=== PATIENT | female | born 1950 | race Caucasian/White ===

== ENCOUNTER 2019-11-09 13:04 | Emergency (ER) | payer MEDICARE, BC ==
[2019-11-09] MEDS ORDERED: Metoclopramide 10 MG/2 ML SDV IVPUSH ONE (13:45)
[2019-11-09] MEDS ORDERED: LORazepam 2 MG/ML SDV IV ONE (13:45)
[2019-11-09] MEDS ORDERED: Sodium Chloride 0.9% 1,000 ML IV SCH (13:45)
--- NOTE | 2019-11-09 13:51 | EDM.PDOC ---
ED HPI GENERAL MEDICAL PROBLEM - General Chief Complaint: Neurological Problem Stated Complaint: OFF BALANCE Time Seen by Provider: 11/09/19 13:32 Source of Information: Reports: Patient History Limitations: Reports: No Limitations - History of Present Illness INITIAL COMMENTS - FREE TEXT/NARRATIVE: 69-year-old female presents to the ED feeling off balance when she tries to walk since about 1:00 this morning. Associated intermittent nausea without any vomiting. Of note symptoms go away when she stops moving or rest. By history she has chronic tinnitus in both ears and its louder some days than others. Associated mild hearing loss. She has had consultation with audiology in the past. Denies any recent falls or injuries to her head. Denies feeling like her heart is skipping or racing. Only change in medication is been an increased dose of Cymbalta about a month ago for chronic pain syndrome. Patient has not had vertigo symptoms in the past. No recent change in eyeglasses. Of note she has no symptoms if she is perfectly still. Patient states that she is walking in her hallway at home this morning and bouncing off both gomez. Onset: Today, Sudden Onset Date: 11/09/19 Onset Time: 01:00 Duration: Hour(s):, Getting Worse, Waxing/Waning (Occurs only with movement of her head and neck.) Location: Reports: Other (Off balance off kilter feeling i.e. vertigo with walking.) Quality: Reports: Other (Offkilter/off-balance feeling) Severity: Moderate Improves with: Reports: Rest Worsens with: Reports: Movement Context: Denies: Activity (Any movement of the head and neck precipitates vertigo symptoms), Exercise, Lifting, Sick Contact, Trauma, Other Associated Symptoms: Reports: No Other Symptoms, Malaise (Chronic), Nausea/Vomiting (Nausea with off-balance sensation. No vomiting.), Rash, Weakness (General sense of weakness). Denies: Confusion, Chest Pain, Cough, cough w sputum, Diaphoresis, Fever/Chills, Headaches, Loss of Appetite, Seizure, Shortness of Breath, Syncope Treatments CHIEF OF VITAL STATISTICS: Reports: Other (see below) (No new medications.) - Related Data Allergies Allergy/AdvReac Type Severity Reaction Status Date / Time sweet potato Allergy Severe Vomiting Verified 11/09/19 13:28 Home Meds: Home Meds Benazepril [Lotensin] 1 tab PF DAILY 11/09/19 [History] Cyanocobalamin/Folic AC/Vit B6 [Folbee] 1 tab PO DAILY 11/09/19 [History] DULoxetine [Cymbalta] 60 mg PO DAILY 11/09/19 [History] Famotidine 20 mg PO BID 11/09/19 [History] Furosemide [Lasix] 40 mg PO DAILY 11/09/19 [History] Gabapentin [Neurontin] 300 mg PO DAILY 11/09/19 [History] Gabapentin [Neurontin] 600 mg PO BID 11/09/19 [History] Loratadine/Pseudoephedrine [Claritin-D 12 Hour] 11/09/19 [History] atenoloL [Tenormin] 50 mg PO DAILY 11/09/19 [History] rOPINIRole [Requip] 0.5 mg PO 11/09/19 [History] rOPINIRole [Requip] 1 mg PO BEDTIME 11/09/19 [History] Past Medical History Cardiovascular History: Reports: Hypertension Respiratory History: Reports: Sleep Apnea 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 Social & Family History - Living Situation & Occupation Living situation: Reports: , with Family ED ROS GENERAL - Review of Systems Review Of Systems: See Below Constitutional: Reports: Malaise, Weakness, Fatigue, Decreased Appetite. [place] es: Fever, Chills, Weight Loss HEENT: Reports: Glasses, Hearing Loss (She has chronic tinnitus in both ears for many years. Slowly losing her hearing. Not using hearing aids at present.), Vertigo (Vertigo symptoms today as presenting complaint. No past history of vertigo) Respiratory: Reports: Shortness of Breath. Denies: Wheezing, Pleuritic Chest Pain (Exertion at times), Cough, Sputum Cardiovascular: Reports: Blood Pressure Problem, Lightheadedness. Denies: Chest Pain, Claudication, Dyspnea on Exertion, Edema, Orthopnea, Palpitations Endocrine: Reports: Fatigue GI/Abdominal: Reports: Nausea (Nausea associated with the). Denies: Vomiting ( feeling of off balance today with no vomiting) : Reports: Frequency, Incontinence (Both both urge and stress components.) Musculoskeletal: Reports: Joint Pain (Arthritis changes knees hips lower back neck and shoulders.) Skin: Reports: No Symptoms Neurological: Reports: Difficulty Walking (Due to pain in lower extremities) Psychiatric: Reports: Depression, Other Hematologic/Lymphatic: Reports: No Symptoms (Chronic pain syndrome) Immunologic: Reports: No Symptoms ED EXAM, DIZZINESS - Physical Exam Exam: See Below Exam Limited By: No Limitations General Appearance: Alert, WD/WN, No Apparent Distress, Other (Patient is mildly anxious. Temperature is likely not correct at 35.8. Heart rate is 57 and sinus respiratory is 18 BP 152/91 sats are 97% on room air.) Eye Exam: Right Eye: Nystagmus (Gained nystagmus on right lateral gaze. No rotational component), Bilateral Eye: Normal Inspection, PERRL Nystagmus: worsens with head to R, reproducible, short duration Ears: TM Obscured by Cerumen (Left side is totally obscured by cerumen impaction against the eardrum.) Throat/Mouth: Normal Inspection, Normal Lips, Normal Oropharynx, Other (Oropharynx is slightly erythematous. Patient mentions that she is or does use a CPAP machine at bedtime due to sleep apnea which is likely the cause.) Head Exam: Atraumatic, Normocephalic Vertigo: worsens with head to R, reproducible Neck: Normal Inspection, Supple, Full Range of Motion, Tender Lateral. No: Carotid Bruit, Lymphadenopathy (L), Lymphadenopathy (R), Thyromegaly Respiratory/Chest: No Respiratory Distress, Lungs Clear, Normal Breath Sounds, No Accessory Muscle Use, Chest Non-Tender Cardiovascular: Normal Peripheral Pulses, Regular Rate, Rhythm, No Edema, No Gallop, No Murmur, No Rub GI/Abdominal: Normal Bowel Sounds, Soft, Non-Tender, No Organomegaly, No Mass, Pelvis Stable, Other (Moderately obese. This makes palpation of solid organs more difficult.) Neurological: Alert, Normal Mood/Affect, CN II-XII Intact, Normal Plantar Flexion, No Motor/Sensory Deficits, Oriented x 3, Other (No pronator drift. Normal rapid alternating movements.). No: Abnormal Finger to Nose Extremities: Normal Inspection, Normal Range of Motion, No Pedal Edema, Other (Treated changes both knees with very limited range of motion both hips suggesting arthritis.) Psychiatric: Normal Affect, Normal Mood, Anxious Skin Exam: Warm, Dry (Very mildly anxious.), Intact, Normal Color, No Rash Course - Vital Signs Last Recorded V/S: Last Vital Signs Temp 35.8 C L 11/09/19 13:21 Pulse 79 11/09/19 16:00 Resp 16 11/09/19 16:00 BP 159/77 H 11/09/19 16:00 Pulse Ox 97 11/09/19 16:00 - Orders/Labs/Meds Labs: Laboratory Tests 11/09/19 11/09/19 11/09/19 Range/Units 13:52 14:40 14:40 WBC 5.17 (3.98-10.04) K/mm3 RBC 4.48 (3.98-5.22) M/mm3 Hgb 13.8 (11.2-15.7) gm/dl Hct 43.9 (34.1-44.9) % MCV 98.0 H D (79.4-94.8) fl MCH 30.8 (25.6-32.2) pg MCHC 31.4 L (32.2-35.5) g/dl RDW Std Deviation 50.0 H (36.4-46.3) fL Plt Count 214 (182-369) K/mm3 MPV 10.8 (9.4-12.3) fl Neut % (Auto) 57.7 (34.0-71.1) % Lymph % (Auto) 27.7 (19.3-51.7) % [place] % (Auto) 10.1 (4.7-12.5) % Eos % (Auto) 3.1 (0.7-5.8) Baso % (Auto) 1.2 (0.1-1.2) % Neut # (Auto) 2.99 (1.56-6.13) K/mm3 Lymph # (Auto) 1.43 (1.18-3.74) K/mm3 [place] # (Auto) 0.52 H (0.24-0.36) K/mm3 Eos # (Auto) 0.16 (0.04-0.36) K/mm3 Baso # (Auto) 0.06 (0.01-0.08) K/mm3 Sodium 141 (136-145) mEq/L Potassium 3.9 (3.5-5.1) mEq/L Chloride 105 (98-107) mEq/L Carbon Dioxide 29 (21-32) mEq/L Anion Gap 10.9 (5-15) BUN 24 H (7-18) mg/dL Creatinine 1.1 H (0.55-1.02) mg/dL Est Cr Clr Drug Dosing 45.62 mL/min Estimated GFR (MDRD) 49 (>60) mL/min BUN/Creatinine Ratio 21.8 H (14-18) Glucose 106 (83-115) mg/dL Calcium 8.9 (8.5-10.1) mg/dL Magnesium 2.0 (1.8-2.4) mg/dl Total Bilirubin 0.4 (0.2-1.0) mg/dL AST 20 (15-37) U/L ALT 21 (14-59) U/L Alkaline Phosphatase 102 (46-116) U/L Troponin I < 0.017 (0.00-0.056) ng/mL Total Protein 7.9 (6.4-8.2) g/dl Albumin 3.1 L (3.4-5.0) g/dl Globulin 4.8 gm/dL Albumin/Globulin Ratio 0.7 L (1-2) TSH 3rd Generation 2.629 (0.358-3.74) uIU/mL Meds: Medications Discontinued Medications Generic Name Dose Route Start Last Admin Trade Name Freq PRN Reason Stop Dose Admin Sodium Chloride 1,000 mls @ 150 mls/hr 11/09/19 13:45 11/09/19 14:23 Normal Saline IV 150 mls/hr ASDIRECTED MELISSA Administration Lorazepam 0.5 mg 11/09/19 13:45 11/09/19 14:22 Ativan IV 11/09/19 13:46 0.5 mg ONETIME ONE Administration Meclizine HCl 25 mg 11/09/19 15:35 11/09/19 15:46 Antivert PO 11/09/19 15:36 25 mg ONETIME ONE Administration Metoclopramide HCl 7.5 mg 11/09/19 13:45 11/09/19 14:23 Reglan IVPUSH 11/09/19 13:46 7.5 mg ONETIME ONE Administration - Radiology Interpretation Free Text/Narrative:: 69-year-old female presents to the ED with acute onset of vertigo symptoms that started about 1:00 this morning when she got up. Subsequently she has been walking down hallways and bouncing off both gomez. She is vertiginous with movement and it goes away if she holds still and rest. Associated nausea development with movement disorder but has not vomited. Examination reveals sustained nystagmus on right lateral gaze. Interestingly she has a significant cerumen impaction in her left ear which may be the cause of her current vertigo symptoms. However history suggest chronic tinnitus in both ears with hearing loss gradually over several years. Plan IV normal saline at 125 mils per hour. Given Reglan 7.5 mg IV and Ativan 0.5 mg IV to stabilize her balance mechanism. She will have irrigation of the cerumen from her left ear. Routine labs to be collected to rule out a metabolic abnormality such as hypokalemia hypercalcemia or hypothyroidism. Of note she is bradycardic on examination at 54--55/min. - Re-Assessments/Exams Free Text/Narrative Re-Assessment/Exam: 11/09/19 14:53 White blood cell count is 5.17. The auto differential shows 58% neutrophils. Hemoglobin is 13.8 with hematocrit of 43.9. MCV is slightly elevated at 98.0. Platelet count 214,000. 11/09/19 15:27 Chemistry shows a sodium of 141 potassium of 3.9. Chloride 105 bicarb is 29. Anion gap is 10.9 BUN is 24 with a creatinine of 1.1. GFR is 49. BUN/creatinine ratio slightly elevated at 21.8. Glucose 106 with a calcium of 8.9. Magnesium is normal at 2.0 liver function normal. Troponin I is less than 0.017 total protein is 7.9 with an albumin fraction slightly low at 3.1. Globulin is 4.8. TSH is normal at 2.62 11/09/19 15:27 Nurse reports that her Lt ear has been irrigated and when she sat up patient still felt very vertiginous. We will therefore give further medication. Meclizine 25 mg p.o. I`m going to have the nurses have her get up and walk and see how she feels in a few minutes. 11/09/19 15:55 states she feels much better after she got up and moved around this time. Very mild vertigo symptoms but much improved. She will therefore be discharged to home. I will write her prescription for meclizine 25 mg tablet to be taken every 8 hours for 5 days if she has continued symptoms. Since removal of the cerumen impaction in her left ear may have been the culprit I am going to ask her to adopt a [id number] approach. She did receive the first dose of meclizine in the ED but will not take another tablet unless she has continued vertigo symptoms. Of note there was no sustained nystagmus to the right on review. Departure - Departure Time of Disposition: 15:56 Disposition: Home, Self-Care 01 Condition: Fair Clinical Impression: Impacted cerumen of left ear Benign paroxysmal positional vertigo Qualifiers: Laterality: left Qualified Code(s): H81.12 - Benign paroxysmal vertigo, left ear - Discharge Information *PRESCRIPTION DRUG MONITORING PROGRAM REVIEWED*: Not Applicable *COPY OF PRESCRIPTION DRUG MONITORING REPORT IN PATIENT GEOVANNY: Not Applicable Instructions: Vertigo, [id number] Referrals: Navya Rivera PUBLIC ADMINISTRATION PROFESSOR [Primary Care Provider] - Forms: ED Department Discharge Additional Instructions: Evaluation in the emergency room today in regards to development of balance issues since 1:00 this morning. This made you walk into the gomez and have a very unsteady gait like you have been drinking too much alcohol. Examination revealed that you do have cerumen impaction or earwax pushing up on the left eardrum which sometimes can cause vertigo symptoms. Lab test done in the ED today revealed no abnormalities. You felt better after the wax was removed from the left ear suggesting it may have been the culprit. You did also receive medication intravenously while in the ED for vertigo symptoms. You were given a tablet of meclizine 25 mg prior to discharge. Medication is taken 1 tablet every 8 hours for 5 consecutive days if vertigo symptoms persist. Which you can buy the same medication called Antivert 12.5 mg tablets [id number] in any drugstore and take 2 tablets every 8 hours. I would suggest doing this if your vertigo symptoms persist over the next 8 to 12 hours. However if it was the ear wax plug causing the symptoms vertigo symptoms may be gone and no further medication is indicated. Follow-up is required if you have persistent off balance or off kilter feeling last longer than 7 days. 5% of patients are better within 5 days of development of vertigo. However this does make you more prone to this reoccurring. Sepsis Event Note (ED) - Evaluation Sepsis Screening Result: No Definite Risk - Focused Exam Vital Signs: Vital Signs Temp Pulse Resp BP Pulse Ox 11/09/19 16:00 79 16 159/77 H 97 11/09/19 13:21 35.8 C L 57 L 18 152/91 H 97
[2019-11-09] MEDS ORDERED: Meclizine 12.5 MG Tab PO ONE (15:35)
[2019-11-09 16:28] VITALS: BP 159/77; PULSE 79
== END 2019-11-09 16:10 | disposition home or self-care (01) ==
LOC: JD.ED 13:04
DX: H61.22 Impacted cerumen, left ear (principal); H81.12 Benign paroxysmal vertigo, left ear; I10 Essential (primary) hypertension; G62.9 Polyneuropathy, unspecified; Z91.018 Allergy to other foods; Z79.899 Other long term (current) drug therapy
CPT/HCPCS: 36415; 69209; 80053; 83735; 84443; 84484; 85025; 96361; 96374; 96375; 99284; A9270; J2060; J2765; J7030; 99283

== ENCOUNTER 2023-07-08 18:55 | Observation (INO) | payer MEDICARE, BC ==
[2023-07-08 20:36] LABS: BASOPHILS PERCENT AUTO 0.5 % (0.0-1.0); EOSINOPHILS PERCENT AUTO 0.1 % (0.0-6.0); HEMATOCRIT 40.3 % (37.0-47.0); HEMOGLOBIN 13.7 gm/dl (12.0-16.0); IMMATURE GRAN ABSOLUTE AUTO 0.04 K/mm3 (0.00-0.05); IMMATURE GRAN PERCENT AUTO 0.5 % (0.0-0.4); LYMPHOCYTES ABSOLUTE AUTO 0.4 K/mm3 (1.0-4.8); LYMPHOCYTES PERCENT AUTO 4.3 % (24.0-44.0); MEAN CORPUSCULAR HEMOGLOBIN 31.1 pg (28.0-32.0); MEAN CORPUSCULAR VOLUME 91.4 fl (83.0-99.0); MEAN PLATELET VOLUME 11.7 fl (9.4-12.3); MONOCYTES ABSOLUTE AUTO 0.6 K/mm3 (0.0-0.8); MONOCYTES PERCENT AUTO 6.5 % (0.0-8.0); NEUTROPHILS ABSOLUTE AUTO 7.4 K/mm3 (1.8-7.7); NEUTROPHILS PERCENT AUTO 88.1 % (41.0-71.0); PLATELET COUNT,PLT 236 K/mm3 (150-400); RED BLOOD CELL COUNT 4.41 M/mm3 (4.10-5.30); WHITE BLOOD CELL COUNT,WBC 8.43 K/mm3 (3.9-11.3)
[2023-07-08 20:53] LABS: A/G RATIO 0.5 (1-2); ALANINE AMINOTRANSFERASE,ALT 533 U/L (14-59); ALBUMIN 2.6 g/dl (3.4-5.0); ALKALINE PHOSPHATASE 403 U/L (46-116); ANION GAP 11.9 (5-15); BILIRUBIN TOTAL 3.6 mg/dL (0.2-1.0); BLOOD UREA NITROGEN,BUN 20 mg/dL (7-18); BUN/CREATININE RATIO 16.7 (14-18); CALCIUM 8.4 mg/dL (8.5-10.1); CARBON DIOXIDE,CO2 31 mEq/L (21-32); CHLORIDE,CL 99 mEq/L (98-107); CREATININE 1.2 mg/dL (0.55-1.02); EST CRCL DRUG DOSING (CG) 35.52 mL/min; ESTIMATED GFR 48 mL/min (>60); SODIUM,NA 137 mEq/L (136-145)
[2023-07-08] MEDS: Sodium Chloride 0.9% 10 ML Syringe FLUSH PRN (21:00)
[2023-07-08] MEDS: rOPINIRole 1 MG Tab PO ONE (21:00)
[2023-07-08 21:02] LABS: GLUCOSE RANDOM 172 mg/dL (70-99); POTASSIUM,K 4.9 mEq/L (3.5-5.1); PROTEIN TOTAL,TP 7.5 g/dl (6.4-8.2)
[2023-07-08] MEDS: cefTRIAXone 1 GM in Sodium Chloride 0.9% 100 ML IV ONE (23:35)
[2023-07-08] MEDS: HYDROmorphone 0.5 MG/0.5 ML Syringe IVPUSH ONE (23:38)
[2023-07-09] MEDS ORDERED: Ondansetron 4 MG/2 ML SDV IVPUSH PRN (00:35)
[2023-07-09 06:58] LABS: BASOPHILS PERCENT AUTO 0.6 % (0.0-1.0); EOSINOPHILS ABSOLUTE AUTO 0.1 K/mm3 (0.0-0.4); EOSINOPHILS PERCENT AUTO 1.2 % (0.0-6.0); HEMATOCRIT 37.7 % (37.0-47.0); HEMOGLOBIN 12.5 gm/dl (12.0-16.0); IMMATURE GRAN ABSOLUTE AUTO 0.04 K/mm3 (0.00-0.05); IMMATURE GRAN PERCENT AUTO 0.6 % (0.0-0.4); LYMPHOCYTES ABSOLUTE AUTO 0.5 K/mm3 (1.0-4.8); LYMPHOCYTES PERCENT AUTO 6.7 % (24.0-44.0); MEAN CORPUSCULAR HEMOGLOBIN 30.9 pg (28.0-32.0); MEAN CORPUSCULAR HGB CONC 33.2 g/dl (32.0-36.0); MEAN CORPUSCULAR VOLUME 93.3 fl (83.0-99.0); MEAN PLATELET VOLUME 11.3 fl (9.4-12.3); MONOCYTES ABSOLUTE AUTO 0.5 K/mm3 (0.0-0.8); MONOCYTES PERCENT AUTO 7.7 % (0.0-8.0); NEUTROPHILS ABSOLUTE AUTO 5.6 K/mm3 (1.8-7.7); NEUTROPHILS PERCENT AUTO 83.2 % (41.0-71.0); RED BLOOD CELL COUNT 4.04 M/mm3 (4.10-5.30); WHITE BLOOD CELL COUNT,WBC 6.72 K/mm3 (3.9-11.3)
[2023-07-09 07:02] LABS: PLATELET COUNT,PLT 159 K/mm3 (150-400)
[2023-07-09] MEDS ORDERED: [UNRECOGNIZED DRUG - OTHER] PO PRN (07:02)
[2023-07-09] MEDS ORDERED: LORATADINE PO PRN (07:02)
[2023-07-09] MEDS ORDERED: PSEUDOEPHEDRINE PO PRN (07:02)
[2023-07-09 07:24] LABS: A/G RATIO 0.6 (1-2); ALBUMIN 2.6 g/dl (3.4-5.0); ANION GAP 8.8 (5-15); BILIRUBIN TOTAL 1.8 mg/dL (0.2-1.0); BUN/CREATININE RATIO 14.3 (14-18); CALCIUM 8.6 mg/dL (8.5-10.1); CREATININE 1.4 mg/dL (0.55-1.02); EST CRCL DRUG DOSING (CG) 30.44 mL/min; PROTEIN TOTAL,TP 6.8 g/dl (6.4-8.2)
[2023-07-09 07:43] LABS: POTASSIUM,K 2.8 mEq/L (3.5-5.1)
[2023-07-09] MEDS: Acetaminophen 325 MG Tab PO PRN (08:09)
[2023-07-09] MEDS: HYDROmorphone 0.5 MG/0.5 ML Syringe IVPUSH PRN (08:50)
[2023-07-09] MEDS ORDERED: Furosemide 40 MG Tab PO SCH (09:00)
[2023-07-09] MEDS ORDERED: Pseudoephedrine 30 MG Tab PO PRN (09:00)
[2023-07-09] MEDS ORDERED: BENAZEPRIL 40 MG PF SCH (09:00)
[2023-07-09] MEDS ORDERED: Loratadine 10 MG Tab PO PRN (09:00)
[2023-07-09] MEDS: Sodium Chloride 0.9% 10 ML Syringe FLUSH SCH (09:51)
[2023-07-09] MEDS: Gadobenate Dimeglumine 529 MG/ML 20 ML SDV IVPUSH ONE (09:51)
[2023-07-09] MEDS: Potassium Chloride 10 MEQ in Premix Bag 1 BAG IV SCH (10:08)
[2023-07-09] MEDS: Sodium Chloride 0.45% 1,000 ML IV SCH (10:08)
[2023-07-09 10:28] LABS: MAGNESIUM 1.8 mg/dL (1.8-2.4)
[2023-07-09] MEDS: Insulin Lispro 100 Unit/ML 3 ML KwikPen SUBCUT SCH (11:11)
[2023-07-09] MEDS ORDERED: HYDROmorphone 0.5 MG/0.5 ML Syringe IVPUSH PRN (12:14)
[2023-07-09] MEDS ORDERED: Acetaminophen 325 MG Tab PO PRN (12:15)
[2023-07-09] MEDS ORDERED: oxyCODONE 5 MG Tab PO PRN (14:26)
[2023-07-09] MEDS: BUPROPION 75 MG PO SCH (14:39)
[2023-07-09] MEDS: DULOXETINE 60 MG PO SCH (14:40)
[2023-07-09] MEDS: DULOXETINE 30 MG PO SCH (14:40)
[2023-07-09] MEDS: TORSEMIDE 20 MG PO SCH (14:41)
[2023-07-09] MEDS: ATORVASTATIN 20 MG PO SCH (14:41)
[2023-07-09] MEDS: Gabapentin 300 MG Cap**PTOM PO SCH (14:42)
[2023-07-09] MEDS: Famotidine 20 MG Tab **PTOM PO SCH (14:43)
[2023-07-09] MEDS: ATENOLOL 25 MG PO SCH (14:43)
[2023-07-09 15:49] LABS: APPEARANCE,URINE CLEAR (Clear); BILIRUBIN,URINE NEGATIVE (Negative); COLOR,URINE YELLOW (Yellow); GLUCOSE,URINE NEGATIVE (Negative); KETONES,URINE NEGATIVE (Negative); LEUKOCYTE ESTERASE,URINE 1+ (Negative); NITRITE,URINE NEGATIVE (Negative); OCCULT BLOOD,URINE NEGATIVE (Negative); PH,URINE 6.5 (5.0-8.0); PROTEIN,URINE TRACE (Negative)
[2023-07-09 16:03] LABS: BACTERIA,URINE FEW /hpf (FEW); MUCUS,URINE FEW /hpf (FEW); RBC,URINE 0-5 /hpf (0-5)
[2023-07-09] MEDS: ROPINIROLE 0.5 MG PO PRN (18:27)
[2023-07-09] MEDS: Gabapentin 300 MG Cap **PTOM PO SCH (21:30)
[2023-07-09] MEDS: ROPINIROLE 1 MG PO SCH (21:30)
[2023-07-10 05:44] LABS: BASOPHILS ABSOLUTE AUTO 0.1 K/mm3 (0.0-0.2); BASOPHILS PERCENT AUTO 1.1 % (0.0-1.0); EOSINOPHILS ABSOLUTE AUTO 0.3 K/mm3 (0.0-0.4); EOSINOPHILS PERCENT AUTO 6.1 % (0.0-6.0); HEMOGLOBIN 11.8 gm/dl (12.0-16.0); IMMATURE GRAN ABSOLUTE AUTO 0.01 K/mm3 (0.00-0.05); IMMATURE GRAN PERCENT AUTO 0.2 % (0.0-0.4); LYMPHOCYTES ABSOLUTE AUTO 0.4 K/mm3 (1.0-4.8); LYMPHOCYTES PERCENT AUTO 8.8 % (24.0-44.0); MEAN CORPUSCULAR HEMOGLOBIN 30.3 pg (28.0-32.0); MEAN CORPUSCULAR HGB CONC 32.8 g/dl (32.0-36.0); MEAN CORPUSCULAR VOLUME 92.3 fl (83.0-99.0); MEAN PLATELET VOLUME 11.6 fl (9.4-12.3); MONOCYTES ABSOLUTE AUTO 0.4 K/mm3 (0.0-0.8); MONOCYTES PERCENT AUTO 7.8 % (0.0-8.0); NEUTROPHILS ABSOLUTE AUTO 3.6 K/mm3 (1.8-7.7); PLATELET COUNT,PLT 152 K/mm3 (150-400); WHITE BLOOD CELL COUNT,WBC 4.75 K/mm3 (3.9-11.3)
[2023-07-10 06:01] LABS: A/G RATIO 0.6 (1-2); ALBUMIN 2.4 g/dl (3.4-5.0); ANION GAP 11.9 (5-15); BILIRUBIN TOTAL 0.9 mg/dL (0.2-1.0); CALCIUM 8.1 mg/dL (8.5-10.1); EST CRCL DRUG DOSING (CG) 42.62 mL/min; MAGNESIUM 1.8 mg/dL (1.8-2.4); POTASSIUM,K 2.9 mEq/L (3.5-5.1); PROTEIN TOTAL,TP 6.6 g/dl (6.4-8.2)
[2023-07-10] MEDS: Potassium Chloride 20 MEQ Tab.ER PO ONE (08:35)
[2023-07-10 12:00] VITALS: BP 138/78; PULSE 64
== END 2023-07-10 14:06 | disposition home or self-care (01) ==
LOC: JD.ED 18:55 → JD.MS 23:52
PROVIDERS: ADMIT Internal Medicine; ATTEND Internal Medicine
DX: K80.20 Calculus of gallbladder without cholecystitis without obstruction (principal); R93.3 Abnormal findings on diagnostic imaging of other parts of digestive tract; R74.8 Abnormal levels of other serum enzymes; K86.2 Cyst of pancreas; D13.5 Benign neoplasm of extrahepatic bile ducts; D35.02 Benign neoplasm of left adrenal gland; R17 Unspecified jaundice; G47.33 Obstructive sleep apnea (adult) (pediatric); M15.9 Polyosteoarthritis, unspecified; E66.01 Morbid (severe) obesity due to excess calories; R73.9 Hyperglycemia, unspecified; I12.9 Hypertensive chronic kidney disease with stage 1 through stage 4 chronic kidney disease, or unspecified chronic kidney disease; N18.32 Chronic kidney disease, stage 3b; G62.9 Polyneuropathy, unspecified; E87.6 Hypokalemia; Z68.41 Body mass index [BMI] 40.0-44.9, adult; Z99.81 Dependence on supplemental oxygen; Z79.899 Other long term (current) drug therapy; Z86.79 Personal history of other diseases of the circulatory system; Z91.018 Allergy to other foods; Z86.69 Personal history of other diseases of the nervous system and sense organs
CPT/HCPCS: 36415; 72131; 74176; 74183; 76705; 80053; 81001; 81003; 82947; 82977; 83605; 83690; 83735; 85025; 87040; 87086; 87641; 94660; 94761; 97110; 97161; 99285; A9270; A9577; J0696; J1170; J3480; J3490; J7030; 99284